=== PATIENT | male | born 1950 | race Caucasian/White ===

== ENCOUNTER 2022-06-08 17:58 | Observation (INO) ==
[2022-06-08 19:22] LABS: Basophils # (auto) 0.01 K/uL (0-0.2); Basophils % (auto) 0.1 %; Eosinophils # (auto) 0.05 K/uL (0-0.50); Eosinophils % (auto) 0.7 %; Hematocrit (blood only) 39.9 % (40.1-51.0); Hemoglobin 13.3 g/dl (14.0-18.0); Immature Granulocytes # (auto) 0.03 K/uL (0.00-0.02); Immature Granulocytes % (auto) 0.4 %; Lymphocytes # (auto) 2.28 K/uL (1.2-3.4); Lymphocytes % (auto) 30.6 %; Mean Corpuscular Hemoglobin 29.6 pg (25.0-34.0); Mean Corpuscular Hgb Conc 33.3 g/dL (32.0-36.0); Mean Corpuscular Volume 88.9 fL (80.0-100.0); Mean Platelet Volume 9.9 fL (9.4-12.4); Monocytes # (auto) 0.98 K/uL (0.24-0.82); Monocytes % (auto) 13.2 %; Neutrophils # (auto) 4.09 K/uL (1.4-6.5); Platelet Count 217 K/uL (130-400); RDW Coefficient of Variation 13.7 % (11.5-14.5); RDW Standard Deviation 44.9 fL (36.4-46.3); Red Blood Count 4.49 M/uL (4.63-6.08); White Blood Count 7.44 K/ul (4.8-10.8)
[2022-06-08 19:33] LABS: Partial Thromboplastin Ratio 0.9; Partial Thromboplastin Time 24.9 Seconds (21.0-31.0); Prothrombin Time 10.3 Seconds (9.0-12.0)
[2022-06-08 19:51] LABS: Albumin Globulin Ratio 0.8 (0.9-2); Albumin Level 3.9 gm/dl (3.4-5.0); BUN Creatinine Ratio 21.4 (10-20); Bilirubin,Total 0.3 mg/dl (0.2-1.0); Calcium 9.2 mg/dl (8.5-10.1); Creatinine Clr Calc Pharmacy 108.2 ml/min; Est GFR (African American) 102.1 ml/min; Est GFR (Non-African American) 88.1 ml/min; Globulin 4.8 gm/dl (2.5-4.0); Magnesium 1.8 mg/dl (1.7-2.4); Potassium 4.2 mmol/L (3.5-5.1); Total Protein 8.7 gm/dl (6.0-8.3)
--- NOTE | 2022-06-08 21:01 | XRay Report ---
XR chest 1V portable HISTORY: Shortness of breath. COMPARISON: Chest 06/06/2022. FINDINGS: No focal lung consolidations to suggest a pneumonia. No evidence for pulmonary edema. The c ardiac silhouette is top normal in size. No pleural effusions. No pneumothorax. Old, healed left-side d rib fractures again noted. IMPRESSION: No acute process. ACT 112: Negative or not required by law. Electronically signed by: Junior Scott M.D. 06/08/2022 9:00 PM
[2022-06-08] MEDS ORDERED: ALBUT/IPRATROP 3MG/0.5MG NEB 3 ML VIAL NEB STA ×3 (21:04→21:46)
[2022-06-08] MEDS ORDERED: AZITHROMYCIN 250 MG TAB PO ONE (21:09)
[2022-06-08] MEDS ORDERED: predniSONE 50 MG TAB PO STA (21:09)
[2022-06-08] MEDS ORDERED: SODIUM CHLORIDE 0.9% 1000ML 1,000 ML IV ONE (22:36)
[2022-06-08] MEDS ORDERED: MAGNESIUM SULFATE 1GM / D5W BAG IV ONE (22:39)
[2022-06-08] MEDS ORDERED: ENALAPRIL MALEATE 10 MG TAB PO STA (22:42)
[2022-06-08] MEDS: MAGNESIUM SULFATE / D5W 1 GM/100 ML BAG IV SCH (22:50)
--- NOTE | 2022-06-08 23:05 | Emergency Department Note ---
History of Present Illness General Chief Complaint: Respiratory Problems Stated Complaint: DISTRESS BREATHING,SOB,COUGH Time Seen by Provider: 06/08/22 20:45 History of Present Illness Provider Complaint: shortness of breath Onset (ago): week(s) (1) Severity: moderate Maximum Pain Intensity: 0 Relieved By: + upright position Exacerbated By: + exertion and + coughing Known history of: COPD (Never been formally diagnosed with COPD but has an extensive previous history of smoking) Associated symptoms: + cough and + wheezing; no paresthesias, no palpitations, no hemoptysis, no abdominal pain or no rash Treatment prior to arrival: bronchodilator Related Data Home oxygen amount: none Home Medications Medication Instructions Recorded Confirmed Type hydrocodone 7.5 mg-acetaminophen 1 tab PO Q6 PRN Pain 06/08/22 06/08/22 History 325 mg tablet quinapril 20 mg tablet 20 mg PO AMHS 06/08/22 06/08/22 History simvastatin 5 mg tablet 5 mg PO HS 06/08/22 06/08/22 History Allergies Allergy/AdvReac Type Severity Reaction Status Date / Time No Known Allergies Allergy Unverified 06/08/22 22:23 Past Med/Surg History Medical History Hypertension No pertinent family history Surgical History No pertinent past surgical history Social History Smoking Status: Former smoker Preferred Language: Azerbaijani Feels Safe at Home: Yes Review of Systems A total of 10 systems reviewed and were otherwise negative Physical Exam Vital Signs: Vital Signs - 24 hr 06/08/22 17:58 06/08/22 17:58 06/08/22 20:15 Temperature 37.0 C Temperature Source Temporal Artery Sc an Pulse Rate 88 Pulse Rate [Apical ] Respiratory Rate 18 Respiratory Effort / Characteristics Non-Labored Non-Labored Respiratory Depth Normal Normal Respiratory Patter n Regular Regular Blood Pressure 190/87 H Blood Pressure [Ri ght Arm] Blood Pressure Criss n 121 Blood Pressure Criss n [Right Arm] Blood Pressure Pos ition Lying Pulse Oximetry 95 98 Oxygen Delivery Me thod Room Air Room Air Room Air Sepsis Recent Feve r Within 48 Hours No Sepsis New/Unexpla ined Change in Men milly Status No Sepsis Action Take n by Nursing No Action Required 06/08/22 20:15 06/08/22 20:15 06/08/22 20:15 Temperature Temperature Source Pulse Rate Pulse Rate [Apical ] 90 Respiratory Rate 25 H Respiratory Effort / Characteristics Labored Respiratory Depth Respiratory Patter n Blood Pressure Blood Pressure [Ri ght Arm] 185/83 H Blood Pressure Criss n Blood Pressure Criss n [Right Arm] 117 Blood Pressure Pos ition Pulse Oximetry 96 96 96 Oxygen Delivery Me thod Room Air Room Air Room Air Sepsis Recent Feve r Within 48 Hours Sepsis New/Unexpla ined Change in Men milly Status Sepsis Action Take n by Nursing 06/08/22 22:17 Temperature Temperature Source Pulse Rate Pulse Rate [Apical ] 103 H Respiratory Rate 20 Respiratory Effort / Characteristics Non-Labored Respiratory Depth Normal Respiratory Patter n Blood Pressure Blood Pressure [Ri ght Arm] 183/85 H Blood Pressure Criss n Blood Pressure Criss n [Right Arm] 117 Blood Pressure Pos ition Pulse Oximetry 93 Oxygen Delivery Me thod Room Air Sepsis Recent Feve r Within 48 Hours Sepsis New/Unexpla ined Change in Men milly Status Sepsis Action Take n by Nursing Physical Exam: Physical Exam GENERAL: He is oriented to person, place, and time. He appears well-developed and well-nourished. He does not appear distressed. HENT: Exam performed. - Head: Normocephalic and atraumatic. - Right Ear: External ear normal. No mastoid tenderness. - Left Ear: External ear normal. No mastoid tenderness. - Mouth/Throat: The oropharynx is clear and moist. No trismus in the jaw. No dental abscesses or uvula swelling. No oropharyngeal exudate or tonsillar abscesses. EYES: Conjunctivae and EOM are normal. Pupils are equal, round, and reactive to light. Right eye exhibits no discharge. Left eye exhibits no discharge. No scleral icterus. NECK: Normal range of motion. Neck supple. No JVD present. No spinous process tenderness present. No carotid bruit present. No rigidity. No tracheal deviation and normal range of motion present. No Brudzinski's sign and no Kernig's sign noted. CV: Normal rate, regular rhythm, normal heart sounds and intact distal pulses. There is no peripheral edema. Palpable radial pulses bue. PULM/CHEST: Bilateral expiratory wheezes. ABD: The abdomen is soft. Bowel sounds are normal. He has no distension. No mass is present. There is no tenderness. There is no rebound, no guarding, no Myles's sign and no tenderness at McBurney's point. Rovsig negative. MUSC/SKEL: Normal range of motion. There is no peripheral edema, tenderness or deformity. LYMPH: No cervical adenopathy. NEURO: He is alert and oriented to person, place, and time. He has normal streng th. No cranial nerve deficit or sensory deficit. Coordination and gait normal. GCS eye subscore is 4. GCS verbal subscore is 5. GCS motor subscore is 6. Cerebellar tests wnl. SKIN: Skin is warm and dry. He is not diaphoretic. PSYCH: He has a normal mood and affect. Behavior is normal. Judgment and thought content normal. Course Course 2044: The patient was evaluated in room B9. A complete history and physical exam was performed Cardiac monitoring: An order was placed for continuous cardiac monitoring. The monitor shows a rate of 100 with sinus rhythm 2215: Vital signs stable. Labs and imaging within normal limits. Status post 3 DuoNeb treatments and steroids the patient is still having expiratory wheezing. Post albuterol treatment peak flow after 3 treatments was 220. It is thought that the patient has obstructive lung disease given his previous extensive smoking history. [facility] team for COPD exacerbation. Dr. Mackey notified. Administered Medications Magnesium Sulfate/Dextrose (Magnesium Sulfate / D5w) 1 gm in 100 mls @ 50 mls/hr IV Q2H JOSE Stop: 06/09/22 02:44 Last Admin: 06/08/22 22:50 Dose: 50 mls/hr Documented By: JONI Sodium Chloride (Nss 1000ml) 1,000 mls @ 50 mls/hr IV .Q20H ONE Stop: 06/09/22 18:35 Last Admin: 06/08/22 22:50 Dose: 50 mls/hr Documented By: JONI Discontinued Medications Albuterol (Albut/Ipratrop 3mg/0.5mg Neb 3 Ml Vial) 3 ml NEB NOW STA; Protocol Stop: 06/08/22 21:05 Last Admin: 06/08/22 21:11 Dose: 3 ml Documented By: JONI Albuterol (Albut/Ipratrop 3mg/0.5mg Neb 3 Ml Vial) 3 ml NEB NOW STA; Protocol Stop: 06/08/22 21:05 Last Admin: 06/08/22 21:11 Dose: 3 ml Documented By: JONI Albuterol (Albut/Ipratrop 3mg/0.5mg Neb 3 Ml Vial) 3 ml NEB NOW STA; Protocol Stop: 06/08/22 21:47 Last Admin: 06/08/22 21:48 Dose: 3 ml Documented By: JONI Azithromycin (Azithromycin 250 Mg Tab) 500 mg PO NOW ONE Stop: 06/08/22 21:10 Last Admin: 06/08/22 21:25 Dose: 500 mg Documented By: JONI Magnesium Sulfate/Dextrose (Magnesium Sulfate 1gm / D5w Bag) Confirm Administered Dose 2 gm IV .STK-MED ONE Stop: 06/08/22 22:40 Last Admin: 06/08/22 22:50 Dose: Not Given Documented By: JONI Prednisone (Prednisone 50 Mg Tab) 50 mg PO NOW STA Stop: 06/08/22 21:10 Last Admin: 06/08/22 21:25 Dose: 50 mg Documented By: JONI Medical Decision Making Laboratory Data Result diagrams: 06/08/22 19:03 06/08/22 19:03 Lab Results 06/08/22 06/08/22 06/08/22 Range/Units 19:03 19:03 19:03 WBC 7.44 (4.8-10.8) K/ul RBC 4.49 L (4.63-6.08) M/uL Hgb 13.3 L (14.0-18.0) g/dl Hct 39.9 L (40.1-51.0) % MCV 88.9 (80.0-100.0) fL MCH 29.6 (25.0-34.0) pg MCHC 33.3 (32.0-36.0) g/dL RDW Std Deviation 44.9 (36.4-46.3) fL RDW Coeff of Anna 13.7 (11.5-14.5) % Plt Count 217 (130-400) K/uL MPV 9.9 (9.4-12.4) fL Immature Gran % (Auto) 0.4 % Neut % (Auto) 55.0 % Lymph % (Auto) 30.6 % [place] % (Auto) 13.2 % Eos % (Auto) 0.7 % Baso % (Auto) 0.1 % Neut # (Auto) 4.09 (1.4-6.5) K/uL Lymph # (Auto) 2.28 (1.2-3.4) K/uL [place] # (Auto) 0.98 H (0.24-0.82) K/uL Eos # (Auto) 0.05 (0-0.50) K/uL Baso # (Auto) 0.01 (0-0.2) K/uL Immature Gran # (Auto) 0.03 H (0.00-0.02) K/uL PT 10.3 (9.0-12.0) Seconds INR 1.0 (0.9-1.1) APTT 24.9 (21.0-31.0) Seconds PTT Ratio 0.9 Sodium 133 L (136-145) mmol/L Potassium 4.2 (3.5-5.1) mmol/L Chloride 102 (98-107) mmol/L Carbon Dioxide 26 (21-32) mmol/L Anion Gap 5 (3-11) BUN 18 (6-23) mg/dl Creatinine 0.84 (0.6-1.4) mg/dl Est Cr Clr Drug Dosing 108.2 ml/min Est GFR ( Amer) 102.1 ml/min Est GFR (Non-Af Amer) 88.1 ml/min BUN/Creatinine Ratio 21.4 H (10-20) Glucose 98 (70-99(Fasting)) mg/dl Calcium 9.2 (8.5-10.1) mg/dl Magnesium 1.8 (1.7-2.4) mg/dl Total Bilirubin 0.3 (0.2-1.0) mg/dl AST 23 (13-39) U/L ALT 28 (7-52) U/L Alkaline Phosphatase 76 (34-104) U/L Total Protein 8.7 H (6.0-8.3) gm/dl Albumin 3.9 (3.4-5.0) gm/dl Globulin 4.8 H (2.5-4.0) gm/dl Albumin/Globulin Ratio 0.8 L (0.9-2) SARS-CoV-2, RNA, NAAT (NEGATIVE) 06/08/22 Range/Units 22:27 WBC (4.8-10.8) K/ul RBC (4.63-6.08) M/uL Hgb (14.0-18.0) g/dl Hct (40.1-51.0) % MCV (80.0-100.0) fL MCH (25.0-34.0) pg MCHC (32.0-36.0) g/dL RDW Std Deviation (36.4-46.3) fL RDW Coeff of Anna (11.5-14.5) % Plt Count (130-400) K/uL MPV (9.4-12.4) fL Immature Gran % (Auto) % Neut % (Auto) % Lymph % (Auto) % [place] % (Auto) % Eos % (Auto) % Baso % (Auto) % Neut # (Auto) (1.4-6.5) K/uL Lymph # (Auto) (1.2-3.4) K/uL [place] # (Auto) (0.24-0.82) K/uL Eos # (Auto) (0-0.50) K/uL Baso # (Auto) (0-0.2) K/uL Immature Gran # (Auto) (0.00-0.02) K/uL PT (9.0-12.0) Seconds INR (0.9-1.1) APTT (21.0-31.0) Seconds PTT Ratio Sodium (136-145) mmol/L Potassium (3.5-5.1) mmol/L Chloride (98-107) mmol/L Carbon Dioxide (21-32) mmol/L Anion Gap (3-11) BUN (6-23) mg/dl Creatinine (0.6-1.4) mg/dl Est Cr Clr Drug Dosing ml/min Est GFR ( Amer) ml/min Est GFR (Non-Af Amer) ml/min BUN/Creatinine Ratio (10-20) Glucose (70-99(Fasting)) mg/dl Calcium (8.5-10.1) mg/dl Magnesium (1.7-2.4) mg/dl Total Bilirubin (0.2-1.0) mg/dl AST (13-39) U/L ALT (7-52) U/L Alkaline Phosphatase (34-104) U/L Total Protein (6.0-8.3) gm/dl Albumin (3.4-5.0) gm/dl Globulin (2.5-4.0) gm/dl Albumin/Globulin Ratio (0.9-2) SARS-CoV-2, RNA, NAAT NEGATIVE (NEGATIVE) Imaging Data Radiologist's Impression: Chest X-Ray 06/08/22 18:09 XR chest 1V portable HISTORY: Shortness of breath. COMPARISON: Chest 06/06/2022. FINDINGS: No focal lung consolidations to suggest a pneumonia. No evidence for pulmonary edema. The cardiac silhouette is top normal in size. No pleural effusions. No pneumothorax. Old, healed left-sided rib fractures again noted. IMPRESSION: No acute process. ACT 112: Negative or not required by law. Electronically signed by: Junior Scott M.D. 06/08/2022 9:00 PM ECG Data Interpretation: Sinus rhythm with a rate of 87. [place] QRS and QTc intervals are within normal limits. No ST elevation or ST depression. There is baseline wander due to patient movement. MDM Narrative Vital signs stable. Labs and imaging within normal limits. Status post 3 DuoNeb treatments and steroids the patient is still having expiratory wheezing. Post albuterol treatment peak flow after 3 treatments was 220. It is thought that the patient has obstructive lung disease given his previous extensive smoking history. Patient will be admitted to the [facility] hospitalist team for COPD exacerbation. Dr. Mackey notified. Impression & Plan Wheezing Discharge Plan Visit Data Chief Complaint: Respiratory Problems Stated Complaint: DISTRESS BREATHING,SOB,COUGH ED Provider: Carlo Hirsch Discharge Problem: Wheezing Patient Disposition: Being Evaluated by Hospitalist Forms Stand Alone Forms: My [facility] Prescriptions Prescriptions: No Action simvastatin 5 mg tablet 5 mg PO HS Rx Instructions: take before bedtime hydrocodone-acetaminophen 7.5-325 mg tablet 1 tab PO Q6 PRN (Reason: Pain) quinapril 20 mg tablet 20 mg PO AMHS Referrals Referrals: Vonda Felder DO [Primary Care Provider] -
[2022-06-08] MEDS ORDERED: methylPREDNISolone 20 MG in SYRINGE 0 ML IV STA (23:12)
[2022-06-08] MEDS ORDERED: BENZONATATE 100 MG CAPSULE PO PRN (23:13)
[2022-06-08] MEDS ORDERED: BENZONATATE 100 MG CAPSULE PO ONE (23:13)
[2022-06-08] MEDS ORDERED: HYDROCODONE/ACETAMINOPHEN 7.5/325MG TAB PO PRN (23:14)
--- NOTE | 2022-06-08 23:16 | History & Physical Report ---
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 Low carbohydrate diet required 24 hours prior to study as per . DVT prophylaxis. Lovenox subcu Full code Text document was generated using [employer] voice recognition software. It may contain grammatical or spelling errors. Kindly contact undersigned for clarification of any documentation item in question. History of Present Illness Chief Complaint: Worsening cough, shortness of breath Primary Care Provider: Vonda Felder DO History obtained from patient, family, and records. Medical history significant for hypertension, hyperlipidemia, monoclonal paraproteinemia with spinal lytic lesions, chronic anemia (baseline hemoglobin 13), past tobacco abuse. 1 week history of congestion symptoms and cough productive of white sputum. Possible sick contacts. No chest pain. Some shortness of breath. Patient completed COVID-19 vaccination. Patient consulted ER 2 days ago. Discharge home with unremarkable work-up. Prescribed as needed inhalers and Mucinex for congestion. Worsening symptoms at home. Patient returned to ER. Albuterol, prednisone and azithromycin administered at the ER. Medical History as above Surgical History : Left foot surgery Family History : Heart disease, stroke Personal/Social history : Past tobacco abuse, EtOH intake, retired [employer] employee Allergies Allergy/AdvReac Type Severity Reaction Status Date / Time No Known Allergies Allergy Unverified 06/08/22 22:23 Home Medications Medication Instructions Recorded Confirmed Type hydrocodone 7.5 mg-acetaminophen 1 tab PO Q6 PRN Pain 06/08/22 06/08/22 History 325 mg tablet quinapril 20 mg tablet 20 mg PO AMHS 06/08/22 06/08/22 History simvastatin 5 mg tablet 5 mg PO HS 06/08/22 06/08/22 History Past Med/Surg History Medical History Hypertension No pertinent family history Surgical History No pertinent past surgical history Social History Smoking Status: Former smoker Preferred Language: [place]al[place] Feels Safe at Home: Yes Review of Systems Review of Systems: As per HPI, all other systems reviewed and negative Physical Exam Physical Exam: GENERAL: Slightly uncomfortable, pleasant, obese, audible wheezing, incessant coughing, minimal respiratory distress SKIN: Normal color, warm HEENT: [place] palpebral conjunctivae, no ptosis, dry buccal mucosa NECK : Supple, short neck, no tenderness CHEST : Decreased breath sounds, diffuse expiratory wheezes, no tenderness HEART : Tachycardic, no obvious murmurs ABDOMEN: Some distention, nontender EXTREMITIES : No LE swelling/tenderness, no other conspicuous deformities noted NEUROLOGIC : Coherent, no facial asymmetry, no other gross focality Results & Data Results & Data ([facility]) Vital Signs (Past 12 Hours) Vital Signs Temp Pulse Pulse Resp BP BP Pulse Ox 06/08/22 22:17 103 H 20 183/85 H 93 06/08/22 20:15 96 06/08/22 20:15 96 06/08/22 20:15 90 25 H 185/83 H 96 06/08/22 20:15 98 06/08/22 17:58 37.0 C 88 18 190/87 H 95 06/08/22 17:58 O2 Del Method 06/08/22 22:17 Room Air 06/08/22 20:15 Room Air 06/08/22 20:15 Room Air 06/08/22 20:15 Room Air 06/08/22 20:15 Room Air 06/08/22 17:58 Room Air 06/08/22 17:58 Room Air Laboratory Results Laboratory Results WBC 7.44 K/ul (4.8-10.8) 06/08/22 19:03 RBC 4.49 M/uL (4.63-6.08) L 06/08/22 19:03 Hgb 13.3 g/dl (14.0-18.0) L 06/08/22 19:03 Hct 39.9 % (40.1-51.0) L 06/08/22 19:03 MCV 88.9 fL (80.0-100.0) 06/08/22 19:03 MCH 29.6 pg (25.0-34.0) 06/08/22 19:03 MCHC 33.3 g/dL (32.0-36.0) 06/08/22 19:03 RDW Std Deviation 44.9 fL (36.4-46.3) 06/08/22 19:03 RDW Coeff of Anna 13.7 % (11.5-14.5) 06/08/22 19:03 Plt Count 217 K/uL (130-400) 06/08/22 19:03 MPV 9.9 fL (9.4-12.4) 06/08/22 19:03 Immature Gran % (Auto) 0.4 % 06/08/22 19:03 Neut % (Auto) 55.0 % 06/08/22 19:03 Lymph % (Auto) 30.6 % 06/08/22 19:03 [place] % (Auto) 13.2 % 06/08/22 19:03 Eos % (Auto) 0.7 % 06/08/22 19:03 Baso % (Auto) 0.1 % 06/08/22 19:03 Neut # (Auto) 4.09 K/uL (1.4-6.5) 06/08/22 19:03 Lymph # (Auto) 2.28 K/uL (1.2-3.4) 06/08/22 19:03 [place] # (Auto) 0.98 K/uL (0.24-0.82) H 06/08/22 19:03 Eos # (Auto) 0.05 K/uL (0-0.50) 06/08/22 19:03 Baso # (Auto) 0.01 K/uL (0-0.2) 06/08/22 19:03 Immature Gran # (Auto) 0.03 K/uL (0.00-0.02) H 06/08/22 19:03 PT 10.3 Seconds (9.0-12.0) 06/08/22 19:03 INR 1.0 (0.9-1.1) 06/08/22 19:03 APTT 24.9 Seconds (21.0-31.0) 06/08/22 19:03 PTT Ratio 0.9 06/08/22 19:03 Sodium 133 mmol/L (136-145) L 06/08/22 19:03 Potassium 4.2 mmol/L (3.5-5.1) 06/08/22 19:03 Chloride 102 mmol/L (98-107) 06/08/22 19:03 Carbon Dioxide 26 mmol/L (21-32) 06/08/22 19:03 Anion Gap 5 (3-11) 06/08/22 19:03 BUN 18 mg/dl (6-23) 06/08/22 19:03 Creatinine 0.84 mg/dl (0.6-1.4) 06/08/22 19:03 Est Cr Clr Drug Dosing 108.2 ml/min 06/08/22 19:03 Est GFR ( Amer) 102.1 ml/min 06/08/22 19:03 Est GFR (Non-Af Amer) 88.1 ml/min 06/08/22 19:03 BUN/Creatinine Ratio 21.4 (10-20) H 06/08/22 19:03 Glucose 98 mg/dl (70-99(Fasting)) 06/08/22 19:03 Calcium 9.2 mg/dl (8.5-10.1) 06/08/22 19:03 Magnesium 1.8 mg/dl (1.7-2.4) 06/08/22 19:03 Total Bilirubin 0.3 mg/dl (0.2-1.0) 06/08/22 19:03 AST 23 U/L (13-39) 06/08/22 19:03 ALT 28 U/L (7-52) 06/08/22 19:03 Alkaline Phosphatase 76 U/L (34-104) 06/08/22 19:03 Total Protein 8.7 gm/dl (6.0-8.3) H 06/08/22 19:03 Albumin 3.9 gm/dl (3.4-5.0) 06/08/22 19:03 Globulin 4.8 gm/dl (2.5-4.0) H 06/08/22 19:03 Albumin/Globulin Ratio 0.8 (0.9-2) L 06/08/22 19:03 SARS-CoV-2, RNA, NAAT NEGATIVE (NEGATIVE) 06/08/22 22:27 Impressions Chest X-Ray 12/06/22 18:09 XR chest 1V portable HISTORY: Shortness of breath. COMPARISON: Chest 06/06/2022. FINDINGS: No focal lung consolidations to suggest a pneumonia. No evidence for pulmonary edema. The cardiac silhouette is top normal in size. No pleural effusions. No pneumothorax. Old, healed left-sided rib fractures again noted. IMPRESSION: No acute process. ACT 112: Negative or not required by law. Electronically signed by: Junior Scott M.D. 06/08/2022 9:00 PM Diagnostic Findings EKG as per my interpretation : Rate 85, NSR, LAD, LAFB, no ischemia, PVCs Code Status & VTE Plan VTE Prophylaxis Plan VTE Prophylaxis will be ordered: Yes
[2022-06-09] MEDS: IPRATROPIUM BROMIDE NEB SOLN 0.02% 2.5 ML VIAL INH SCH ×3 (00:35→13:47)
[2022-06-09] MEDS: LEVALBUTEROL 1.25MG/0.5ML NEB INH SCH ×3 (00:35→13:46)
[2022-06-09] MEDS: MAGNESIUM SULFATE / D5W 1 GM/100 ML BAG IV SCH (00:53)
[2022-06-09] MEDS ORDERED: XOPENEX/ATROVENT 1.25mg/0.5MG NEB COMBO NEB SCH (01:00)
[2022-06-09] MEDS ORDERED: PROMETHAZINE HCL 12.5 MG in SODIUM CHLORIDE 0.9% 50 ML IV PRN (02:27)
[2022-06-09] MEDS ORDERED: ACETAMINOPHEN 325 MG TAB PO PRN (02:27)
[2022-06-09 04:51] LABS: Basophils # (auto) 0.01 K/uL (0-0.2); Basophils % (auto) 0.1 %; Hematocrit (blood only) 38.1 % (40.1-51.0); Hemoglobin 12.7 g/dl (14.0-18.0); Immature Granulocytes # (auto) 0.03 K/uL (0.00-0.02); Immature Granulocytes % (auto) 0.4 %; Lymphocytes # (auto) 1.21 K/uL (1.2-3.4); Lymphocytes % (auto) 17.6 %; Mean Corpuscular Hemoglobin 29.6 pg (25.0-34.0); Mean Corpuscular Hgb Conc 33.3 g/dL (32.0-36.0); Mean Corpuscular Volume 88.8 fL (80.0-100.0); Mean Platelet Volume 9.7 fL (9.4-12.4); Monocytes # (auto) 0.29 K/uL (0.24-0.82); Monocytes % (auto) 4.2 %; Neutrophils # (auto) 5.35 K/uL (1.4-6.5); Neutrophils % (auto) 77.7 %; Platelet Count 218 K/uL (130-400); RDW Standard Deviation 45.5 fL (36.4-46.3); Red Blood Count 4.29 M/uL (4.63-6.08); White Blood Count 6.89 K/ul (4.8-10.8)
[2022-06-09 05:16] LABS: BUN Creatinine Ratio 21.7 (10-20); Calcium 9.1 mg/dl (8.5-10.1); Creatinine Clr Calc Pharmacy 109.5 ml/min; Est GFR (African American) 102.6 ml/min; Est GFR (Non-African American) 88.5 ml/min; Potassium 4.6 mmol/L (3.5-5.1)
[2022-06-09] MEDS ORDERED: ENOXAPARIN INJ 40 MG/0.4 ML SYR SQ SCH (09:00)
[2022-06-09] MEDS ORDERED: ENALAPRIL MALEATE 10 MG TAB PO SCH (09:00)
[2022-06-09] MEDS ORDERED: predniSONE 20 MG TAB PO SCH (09:00)
--- NOTE | 2022-06-09 14:08 | Discharge Summary ---
Date of Service June 09, 2022 Admission HPI Per Admitting Provider History obtained from patient, family, and records. Medical history significant for hypertension, hyperlipidemia, monoclonal paraproteinemia with spinal lytic lesions, chronic anemia (baseline hemoglobin 13), past tobacco abuse. 1 week history of congestion symptoms and cough productive of white sputum. Possible sick contacts. No chest pain. Some shortness of breath. Patient completed COVID-19 vaccination. Patient consulted ER 2 days ago. Discharge home with unremarkable work-up. Prescribed as needed inhalers and Mucinex for congestion. Worsening symptoms at home. Patient returned to ER. Albuterol, prednisone and azithromycin administered at the ER. 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 Low carbohydrate diet required 24 hours prior to study as per . DVT prophylaxis. Lovenox subcu Full code Text document was generated using [employer] voice recognition software. It may contain grammatical or spelling errors. Kindly contact undersigned for clarification of any documentation item in question. Discharge Plan Discharge Items Reason For Visit: HTN URG, SOB Follow-up/Referrals: Vonda Felder DO [Primary Care Provider] - (Date & Time 06/15/2022 1:00 PM Provider CHARLI Bernard Department [facility] ) Medications and DC Order Prescriptions: No Action simvastatin 5 mg tablet 5 mg PO HS Rx Instructions: take before bedtime hydrocodone-acetaminophen 7.5-325 mg tablet 1 tab PO Q6 PRN (Reason: Pain) quinapril 20 mg tablet 20 mg PO [facility] Admission Data Admit Date/Time: 06/08/22 23:10 Attending Provider: Michael Suarez Admit Provider: Rick Escalona Primary Care Provider: Vonda Felder Other Providers: Rick Escalona ; Michael Suarez
--- NOTE | 2022-06-09 14:11 | Electrocardiogram Report ---
Test Reason : Blood Pressure : / mmHG Vent. Rate : 087 BPM Atrial Rate : 087 BPM P-R Int : 174 ms QRS Dur : 096 ms QT Int : 362 ms P-R-T Axes : 044 -21 052 degrees QTc Int : 435 ms Poor data quality, interpretation may be adversely affected Sinus rhythm Normal ECG When compared with ECG of 06-JUN-2022 23:14, Incomplete right bundle branch block is no longer Present Confirmed by Franklin Schreiber ([id number]) on 06/09/2022 2:11:46 PM Referred By: REFERRED SELF Confirmed By:Franklin Schreiber
[2022-06-09] MEDS ORDERED: SIMVASTATIN 5 MG TAB PO SCH (21:00)
== END 2022-06-09 14:50 | disposition home or self-care (01) ==
LOC: ED 17:58 → EDINP 17:58 → SUATTDRO 23:10 → EDINP 06-09 02:28